=== PATIENT | female | born 1965 | race Asian ===

== ENCOUNTER 2017-01-31 20:42 | Emergency (ER) | payer OTHER ==
[~2017-01-31] VITALS: Ht 152.4 cm; Wt 58.6 kg
[~2017-01-31 20:42] MED LIST: BENZ100C70 PO; FLUT9.9S NASAL; IBUP-1542 PO; MECL25TA2 PO
[2017-01-31 20:50] VITALS: Ht 152.4 cm; Wt 58.6 kg
[2017-01-31] MEDS ORDERED: predniSONE 20 MG TAB PO ONE (23:00)
[2017-01-31] MEDS ORDERED: PRED20TA PO (23:24)
[2017-01-31] MEDS ORDERED: BEN25 PO (23:25)
[2017-01-31] MEDS ORDERED: CETI10CA PO (23:25)
[2017-01-31 23:37] VITALS: BP 130/81; PULSE 89; RESP 18; TEMP 97.9
--- NOTE | 2017-02-01 00:31 | ERD ---
ER Documentation Chief Complaint Chief Complaint BIB SELF C/O RASH ALL OVER BODY X 4 DAYS AGO HPI Patient is a 51-year-old female with a history of hypertension presents to the ED for concerns of a rash throughout her body 4 days. Patient states initially she had 2-3 lesions on her right lower abdomen now she has developed erythematous lesions throughout her body. Lesions are flat and itchy. Patient denies any new lotions, pets or environmental changes. Patient states she started using a new essential oil today however the rash started prior to this. Denies any lip swelling, tongue swelling, shortness of breath, chest pain, wheezing or loss of consciousness. No recent travel. No sick contacts. ROS All systems reviewed and are negative except as per history of present illness. Medications Home Meds Active Scripts Diphenhydramine Hcl* (Benadryl*) 25 Mg Cap, 25 MG PO Q6, #30 CAP Prov:PRETTY POSEY PA-C 01/31/17 Cetirizine Hcl* (Zyrtec*) 10 Mg Capsule, 10 MG PO DAILY, #10 TAB.CHEW Prov:PRETTY POSEY PA-C 01/31/17 Prednisone* (Prednisone*) 20 Mg Tab, 40 MG PO DAILY for 4 Days, TAB Prov:PRETTY POSEY PA-C 01/31/17 Benzonatate* (Tessalon Perle*) 100 Mg Capsule, 100 MG PO Q8H Y for COUGH, #20 CAP Prov:KRISTY FLORES NP 03/03/16 Fluticasone Propionate (Flonase Allergy Relief) 9.9 Ml [place].susp, 1 SPRAY NASAL DAILY, #1 BOTTLE TO EACH NOSTRIL Prov:KRISTY FLORES NP 03/03/16 Meclizine Hcl* (Antivert*) 25 Mg Tablet, 25 MG PO Q6H Y for DIZZINESS, #20 TAB Prov:AUDRA SILVER MD 08/22/15 Ibuprofen* (Motrin*) 600 Mg Tab, 600 MG PO Q6, #20 TAB Prov:AUDRA SILVER MD 08/22/15 Allergies Allergies: Coded Allergies: Penicillins (Verified Allergy, Unknown, rash, 03/03/16) PMhx/Soc History of Surgery: Yes (CARPAL TUNNEL SURGERY) Hx Cardiac Disorders: Yes (Hypertension) Hx Psychiatric Problems: No Hx Miscellaneous Medical Probl: No Hx Alcohol Use: No Hx Substance Use: No Hx Tobacco Use: No Smoking Status: Never smoker FmHx Family History: No diabetes Physical Exam Vitals Vital Signs Date Time Temp Pulse Resp B/P Pulse Ox O2 Delivery O2 Flow Rate FiO2 01/31/17 23:37 97.9 89 18 130/81 97 01/31/17 20:50 97.9 91 18 141/70 97 Physical Exam GENERAL: Well-developed, well-nourished female. Appears in no acute distress. Speaking in full sentences. HEAD: Normocephalic, atraumatic. EYES: Pupils are equally reactive bilaterally. EOMs grossly intact. No conjunctival erythema. ENT: No lip swelling. No tongue swelling. Oropharynx is open. Moist mucous membranes. No uvula deviation. No kissing tonsils. NECK: Supple. No meningismus. Normal range of motion of the neck. LUNG: Clear to auscultation bilaterally. No rhonchi, wheezing, rales or coarse breath sounds. HEART: Regular rate and rhythm. No murmurs, rubs or gallops. EXTREMITIES: Equal pulses bilaterally. No peripheral clubbing, cyanosis or edema. No unilateral leg swelling. NEUROLOGIC: Alert and oriented. Moving all four extremities without any difficulty. Normal speech. Steady gait. SKIN: Slightly erythematous macular lesions noted throughout the body. Lesions appear in the same stage. No active discharge or bleeding. Negative Nikolsky sign. Patient actively scratching the lesions. Results 24 hrs Current Medications Medications (Trade) Dose Ordered Sig/Larry Route PRN Reason Start Time Stop Time Status Last Admin Dose Admin Prednisone (Prednisone) 40 mg ONCE ONCE PO 01/31/17 23:00 01/31/17 23:01 DC 01/31/17 23:09 Procedures/MDM MEDICAL DECISION MAKING: This is a 51-year-old female presents to the ED for concerns of a itchy rash throughout her body 4 days. Vital signs were reviewed. Patient was afebrile. Patient is not diabetic. Skin exam revealed erythematous macular rash throughout the body. Negative Nikolsky sign. No peeling noted. Lesions were all in the same stage. Given these findings, the patient's presentation is most consistent with rash likely of allergic etiology. I have a much lower clinical concern for necrotizing fasciitis, sepsis, gangrene, Tin-Ellis syndrome, toxic epidural necrolysis, abscess, cellulitis, herpes zoster, viral exanthem, anaphylaxis, fungal infection, insect bites. PRESCRIPTIONS: Prednisone, Zyrtec, Benadryl DISCHARGE: At this time, patient is stable for discharge and outpatient management. Strict anaphylaxis return precautions were discussed with the patient I have advised the patient to avoid any new products, creams or possible allergens. I have advised the patient to avoid scratching the lesions. I have instructed the patient to follow-up with his/her primary care physician in 1-2 days. If symptoms persist, patient may need to see a burner hand for further examinations and testing. I have instructed the patient to promptly return to the ER at any time for any new or worsening symptoms including increased pain, fever, redness, swelling, warmth, difficulty breathing or vomiting. The patient and/or family expressed understanding of and agreement with this plan. All questions were answered. Home care instructions were provided. Patients blood pressure was elevated (>120/80) but appears stable without evidence of hypertensive emergency, hypertensive urgency or end-organ failure. I had discussion with the patient about the risks of hypertension. I have advised the patient to follow up with his/her primary care physician for outpatient monitoring and treatment for hypertension in 2-3 days. I have instructed the patient to return to the ER for any new or worsening symptoms including chest pain, shortness of breath, headache, blurred vision, confusion, nausea, vomiting or LOC. Disclaimer: Inadvertent spelling and grammatical errors are likely due to EHR/ dictation software use and do not reflect on the overall quality of patient care. Also, please note that the electronic time recorded on this note does not necessarily reflect the actual time of the patient encounter. Departure Diagnosis: Primary Impression: Rash Condition: Stable Patient Instructions: Self-Care for Skin Rashes Referrals: KEO DODSON MD,VIVEK MCNEAL,LILO TURPIN,MOISE LONGORIA,DARLIN POSADA,DARLIN Velazquez [facility] YOU HAVE RECEIVED A MEDICAL SCREENING EXAM AND THE RESULTS INDICATE THAT YOU DO NOT HAVE A CONDITION THAT REQUIRES URGENT TREATMENT IN THE EMERGENCY DEPARTMENT. FURTHER EVALUATION AND TREATMENT OF YOUR CONDITION CAN WAIT UNTIL YOU ARE SEEN IN YOUR DOCTORS OFFICE WITHIN THE NEXT 1-2 DAYS. IT IS YOUR RESPONSIBILITY TO MAKE AN APPOINTMENT FOR FOLOW-UP CARE. IF YOU HAVE A PRIMARY DOCTOR --you should call your primary doctor and schedule an appointment IF YOU DO NOT HAVE A PRIMARY DOCTOR YOU CAN CALL OUR PHYSICIAN REFERRAL HOTLINE AT IF YOU CAN NOT AFFORD TO SEE A PHYSICIAN YOU CAN CHOSE FROM THE FOLLOWING [facility] [address] [facility] [address] [facility] [address] [facility] [address] [facility] [address] [facility]. [facility] [address] [facility]. [facility] YOU HAVE RECEIVED A MEDICAL SCREENING EXAM AND THE RESULTS INDICATE THAT YOU DO NOT HAVE A CONDITION THAT REQUIRES URGENT TREATMENT IN THE EMERGENCY DEPARTMENT. FURTHER EVALUATION AND TREATMENT OF YOUR CONDITION CAN WAIT UNTIL YOU ARE SEEN IN YOUR DOCTORS OFFICE WITHIN THE NEXT 1-2 DAYS. IT IS YOUR RESPONSIBILITY TO MAKE AN APPOINTMENT FOR FOLOW-UP CARE. IF YOU HAVE A PRIMARY DOCTOR --you should call your primary doctor and schedule and appointment IF YOU DO NOT HAVE A PRIMARY DOCTOR YOU CAN CALL OUR PHYSICIAN REFERRAL HOTLINE AT . IF YOU CAN NOT AFFORD TO SEE A PHYSICIAN YOU CAN CHOSE FROM THE FOLLOWING [facility]: [facility] [address] [place] [address] [facility] [address] [place] [address] [facility] [address] [place] [address] Additional Instructions: Follow up with a burner hand. See referral information. Call your primary care doctor TOMORROW for an appointment during the next 1-2 days.See the doctor sooner or return here if your condition worsens before your appointment time. PRETTY POSEY PA-C Feb 01, 2017 00:31
== END 2017-01-31 23:38 | disposition home or self-care (01) ==
LOC: FTE 20:42
DX: R21 Rash and other nonspecific skin eruption (principal); I10 Essential (primary) hypertension
CPT/HCPCS: J7512; Z7502; 99283

== ENCOUNTER 2017-05-18 12:02 | Emergency (ER) | END 2017-05-18 16:08 | disposition home or self-care (01) ==

== ENCOUNTER 2018-11-19 18:54 | Inpatient (IN) | payer OTHER ==
[~2018-11-19] VITALS: Ht 152.4 cm; Wt 60.5 kg
[~2018-11-19 18:54] MED LIST changes: +ACET325T33 PO; +BEN25 PO; +BENZ-6 PO; -BENZ100C70 PO; +CETI10CA PO; +CYCL10TA7 PO; +DICL75TA2 PO; +DOCU-144 PO; +LEVO25TA6 PO; +LOSA100T15 PO; +OXYB10TA6 PO; +PRED20TA PO; +TRAM50TA2 PO
[2018-11-19] MEDS ORDERED: SOD CHLORIDE 0.9% 1,000 ML IV SCH (19:47)
[2018-11-19] MEDS ORDERED: SOD CHLORIDE 0.9% 1,000 ML IV STA (19:52)
[2018-11-19] MEDS ORDERED: LABETALOL HCL 20MG INJ IV PRN (20:00)
[2018-11-19] MEDS ORDERED: ONDANSETRON 4 MG INJ IV PRN ×2 (20:00)
[2018-11-19] MEDS ORDERED: DOCUSATE SODIUM 100 MG CAP PO PRN (20:00)
[2018-11-19] MEDS ORDERED: ACETAMINOPHEN 325 MG TAB PO PRN ×2 (20:00)
[2018-11-19] MEDS ORDERED: NACL 0.9% 3 ML SYG IV SCH (20:00)
[2018-11-19] MEDS ORDERED: ASPIRIN 81 MG TAB PO ONE (20:00)
[2018-11-19] MEDS ORDERED: BISACODYL (EC) 5 MG TAB PO PRN (20:00)
[2018-11-19] MEDS ORDERED: NITROFURANTOIN (SR) 100 MG CAP PO ONE (21:00)
[2018-11-19 22:45] VITALS: BP 161/74; PULSE 81; Ht 152.4 cm; Wt 60.5 kg
[2018-11-19] MEDS: CEFTRIAXONE 1 GM/50 ML (PMX) 50 ML IVPB SCH (23:12)
[2018-11-20] VITALS: BP 165/77; PULSE 71; RESP 17
[2018-11-20 04:30] VITALS: BP 122/74; PULSE 63; RESP 18
[2018-11-20] MEDS ORDERED: KETOROLAC 15 MG INJ IV STA (06:58)
[2018-11-20 07:16] VITALS: BP 123/74; PULSE 62; RESP 20
[2018-11-20] MEDS: ASPIRIN 81 MG TAB PO SCH (08:25)
[2018-11-20 11:26] VITALS: BP 134/72; PULSE 64; RESP 19
[2018-11-20 20:00] VITALS: BP 135/60; PULSE 57; RESP 18
[2018-11-20] MEDS ORDERED: GABAPENTIN 100 MG CAP PO SCH (21:00)
[2018-11-20] MEDS: DOCUSATE SODIUM 100 MG CAP PO SCH (21:58)
[2018-11-20] MEDS: CEFTRIAXONE 1 GM/50 ML (PMX) 50 ML IVPB SCH (21:58)
[2018-11-21] VITALS: BP 122/77; PULSE 66; RESP 18
[2018-11-21 03:59] VITALS: BP 109/71; PULSE 66; RESP 18
[2018-11-21 07:33] VITALS: BP 145/72; PULSE 77; RESP 20
[2018-11-21] MEDS ORDERED: LEVOFLOXACIN 500 MG TAB PO ONE (08:30)
[2018-11-21] MEDS: ASPIRIN 81 MG TAB PO SCH (08:34)
[2018-11-21] MEDS: DOCUSATE SODIUM 100 MG CAP PO SCH (08:34)
[2018-11-21] MEDS ORDERED: ENOXAPARIN 40 MG/0.4 ML SYG SC SCH (09:00)
[2018-11-21 11:28] VITALS: BP 157/75; PULSE 68; RESP 18
[2018-11-22] MEDS ORDERED: LEVOTHYROXINE 25 MCG TAB PO SCH (06:00)
== END 2018-11-21 13:45 | disposition home health service (06) | DRG 69 ==
LOC: E/R 18:54 → 6WM 19:51 → TEL 22:40
PROVIDERS: ADMIT Family Medicine; ATTEND Family Medicine
DX: G45.9 Transient cerebral ischemic attack, unspecified (principal); N39.0 Urinary tract infection, site not specified; F33.2 Major depressive disorder, recurrent severe without psychotic features; F44.4 Conversion disorder with motor symptom or deficit; E11.9 Type 2 diabetes mellitus without complications; E03.9 Hypothyroidism, unspecified; B96.20 Unspecified Escherichia coli [E. coli] as the cause of diseases classified elsewhere; R47.1 Dysarthria and anarthria; I10 Essential (primary) hypertension; R47.81 Slurred speech; F41.9 Anxiety disorder, unspecified; M62.838 Other muscle spasm; R21 Rash and other nonspecific skin eruption; M79.7 Fibromyalgia; M54.40 Lumbago with sciatica, unspecified side; G43.909 Migraine, unspecified, not intractable, without status migrainosus; Z79.82 Long term (current) use of aspirin
CPT/HCPCS: 36415; 70450; 70496; 70498; 70551; 71045; 72100; 72141; 74230; 80048; 80053; 80061; 80307; 81001; 82550; 82553; 82962; 83036; 83735; 84439; 84443; 84480; 84484; 84703; 85025; 85610; 85730; 87086; 92610; 92611; 93005; 93306; 97116; 97162; 97165; 97530; 97535; J0696; J1885; J7030